=== PATIENT | male | born 1990 | race Caucasian/White ===

== ENCOUNTER 2017-07-02 11:36 | Emergency (ER) | payer MEDICAID ==
[~2017-07-02] VITALS: Ht 172.7 cm; Wt 68.5 kg
[2017-07-02 12:07] VITALS: BP 103/71
[2017-07-02] MEDS ORDERED: LIDOCAINE 1%, 20ML SQ ONE (12:30)
== END 2017-07-02 13:20 | disposition left against medical advice (07) ==
LOC: ED 13:14
DX: S61.412A Laceration without foreign body of left hand, initial encounter (principal); X58.XXXA Exposure to other specified factors, initial encounter; Y93.89 Activity, other specified; Y92.89 Other specified places as the place of occurrence of the external cause; Y99.8 Other external cause status
CPT/HCPCS: 99284

== ENCOUNTER 2019-06-23 22:00 | Emergency (ER) | payer OTHER, MEDICAID ==
[~2019-06-23] VITALS: Ht 177.8 cm; Wt 60.0 kg
== END 2019-06-23 22:38 | disposition home or self-care (01) ==
LOC: ED 22:32
DX: Z01.812 Encounter for preprocedural laboratory examination (principal); F31.9 Bipolar disorder, unspecified; I10 Essential (primary) hypertension
CPT/HCPCS: 36415; 86701; 86702; 86705; 86706; 86803; 87340; 87389; 99283

== ENCOUNTER 2021-02-03 15:09 | Emergency (ER) | payer MEDICARE, MEDICAID ==
[~2021-02-03] VITALS: Ht 172.7 cm; Wt 71.9 kg
[2021-02-03] MEDS ORDERED: OLANZAPINE 10 MG INJ IM ONE ×2 (16:10→16:30)
[2021-02-03] MEDS ORDERED: BENZTROPINE 1 MG TABLET ONE (16:16)
--- NOTE | 2021-02-03 16:28 | NUR ---
Pt yelling, anxious in apperance. Pt medicated per order. Caregiver at bedside. Pt more calm. Pt free of harm. Will continue to monitor.
[2021-02-03] MEDS ORDERED: BENZTROPINE 1 MG TABLET PO ONE (16:30)
--- NOTE | 2021-02-03 17:14 | NUR ---
EKG completed. Pt remains more calm. Caregiver at bedside. Awaiting re-eval by provider.
[2021-02-03] MEDS ORDERED: LORazepam 1MG TABLET PO ONE (17:30)
[2021-02-03] MEDS ORDERED: LORazepam 1MG TABLET ONE (17:49)
[2021-02-03] MEDS ORDERED: DIPHENHYDRAMINE 50 MG/ML, 1ML IM ONE (18:00)
[2021-02-03] MEDS ORDERED: LORazepam 2 MG/ML, 1ML IM ONE (18:00)
[2021-02-03] MEDS ORDERED: HALOPERIDOL 5 MG/ML IM PRN (18:00)
[2021-02-03] MEDS ORDERED: HALOPERIDOL 5 MG/ML ONE (18:01)
[2021-02-03] MEDS ORDERED: DIPHENHYDRAMINE 50 MG/ML, 1ML ONE (18:01)
[2021-02-03] MEDS ORDERED: LORazepam 2 MG/ML, 1ML ONE (18:02)
[2021-02-03 18:19] VITALS: BP 138/90
--- NOTE | 2021-02-03 18:20 | NUR ---
Pt very agitated and anxious. Screaming, pacing around room, and unable to re-direct. [employer] ARCHITECT Marjorie at bedside and ordered meds. Meds given per order. Caregiver remains at bedside attempting to help calm pt with no success. Pt cooperative with med administration. Pt more calm post medication. VSS, warm blanket given. Will monitor.
[2021-02-03 18:25] LABS: BASOPHILS % (AUTO) 1 % (0-1); EOSINOPHILS % (AUTO) 0 % (1-7); LYMPHOCYTES % (AUTO) 16 % (22-44); MEAN CORPUSCULAR HEMOGLOBIN 31.2 pg (27.5-34.5); MEAN CORPUSCULAR HGB CONC 33.7 g/dL (33.2-36.2); MEAN PLATELET VOLUME 8.5 fL (7.4-10.4); MONOCYTES % (AUTO) 7 % (2-9); NEUTROPHILS % (AUTO) 76 % (42-75); PLATELET COUNT 242 x10^3/uL (130-400); RED BLOOD COUNT 5.14 x10^6/uL (4.38-5.82); RED CELL DISTRIBUTION WIDTH 13.9 % (9.4-14.8)
--- NOTE | 2021-02-03 18:32 | NUR ---
Pt remains calm at this time. Sitting up in bed eating dinner. Caregiver remains at bedside. Will continue to monitor.
[2021-02-03 18:34] LABS: ALBUMIN 3.6 g/dL (3.4-5.0); ANION GAP 7 mmol/L (5-15); CHLORIDE 109 mmol/L (98-107)
[2021-02-03 18:37] LABS: ALANINE AMINOTRANSFERASE 17 U/L (12-78); ALKALINE PHOSPHATASE 67 U/L (45-117); BILIRUBIN,TOTAL 0.2 mg/dL (0.2-1.0); CREATININE 1.09 mg/dL (0.7-1.3); SALICYLATE LEVEL < 1.7 mg/dL (2.8-20.0); TOTAL PROTEIN 7.1 g/dL (6.4-8.2)
[2021-02-03 18:47] LABS: MD SCAN
--- NOTE | 2021-02-03 18:59 | NUR ---
received report from off going RN. pt awake and calm and cooperative. in no acute distress at this time. pt has his resident care coordinator with him at this time. f/u and d/c instructions and prescription given to pt and he v/u and states he's happy he's getting his medication that he needs to help him with his problem. pt ambulatory and d/c'd without incident.
== END 2021-02-03 19:08 | disposition home or self-care (01) ==
LOC: ED 18:50
DX: F20.9 Schizophrenia, unspecified (principal); I10 Essential (primary) hypertension; R00.0 Tachycardia, unspecified
CPT/HCPCS: 36415; 80053; 80143; 80320; 85025; 93005; 96372; 99284; J1200; J1630; J2060; 80179; G0480